=== PATIENT | male | born 1975 | race Hispanic/Latino ===

== ENCOUNTER 2018-03-01 11:21 | Emergency (ER) | payer OTHER, SELFPAY ==
[2018-03-01] MEDS ORDERED: Ibuprofen 800 MG TAB ONE (11:42)
[2018-03-01] MEDS ORDERED: HYDROcodone/Acetaminophen 5/325 mg Tablet ONE (11:42)
[2018-03-01] MEDS ORDERED: Adacel (T-DAP) 0.5 ML SYRINGE ONE (11:42)
[2018-03-01] MEDS ORDERED: Bacitracin Zinc 1 Packet ONE (11:54)
[2018-03-01] MEDS ORDERED: Cephalexin 500 MG CAP ONE (12:11)
--- NOTE | 2018-03-01 17:55 | RAD ---
LEFT HAND THREE VIEWS: 03/01/18 The carpals are not seen optimally on the oblique view, but no abnormalities of them were seen or [place] pected. All bones appeared intact with no sign of fracture or joint abnormality. IMPRESSION: No acute bony findings. POS: HOME
== END 2018-03-01 12:44 | disposition home or self-care (01) ==
LOC: BURERS 11:21
DX: S61.217A Laceration without foreign body of left little finger without damage to nail, initial encounter (principal); F17.220 Nicotine dependence, chewing tobacco, uncomplicated; W20.8XXA Other cause of strike by thrown, projected or falling object, initial encounter
CPT/HCPCS: 90715